=== PATIENT | male | born 1955 | race Caucasian/White ===

== ENCOUNTER 2019-12-23 13:44 | Emergency (ER) | payer OTHER, SELFPAY ==
--- NOTE | ~2019-12-23 | CT_ITS ---
EXAMINATION: CT abdomen pelvis w con DATE: 12/23/2019 15:09 INDICATION: Right flank pain. TECHNIQUE: Computed tomography (CT) of the abdomen and pelvis was performed with 100 mL Omnipaque 350 intravenous contrast. Automated exposure control and iterative reconstruction technique were employe d. The dose-length product was 1147.25 mGy-cm. COMPARISON: None. FINDINGS: The visualized portions of the lung bases demonstrate mild atelectasis. No pleural effusion . The heart size is normal. No pericardial effusion. There is a 2.4 cm cyst in the liver. The gallbla dder, spleen, pancreas, and adrenal glands are normal. There is cortical thinning of the kidneys. The re is a 2 mm stone in right kidney. There is a 4 mm stone in left kidney. There is a right inguinal h ernia containing fat. There are no dilated loops of bowel. The appendix is normal. There are no patho logically enlarged lymph nodes. There is no free intraperitoneal fluid. There is a plug from left ing uinal hernia repair. There is mild thoracolumbar spondylosis. IMPRESSION: 1. Right inguinal hernia containing fat. 2. Small bilateral nonobstructing kidney stones. Reviewed, dictated and finalized at location A.
[2019-12-23 13:49] VITALS: BP 177/95; PULSE 81; RESP 18; TEMP 36.7; O2SAT 98
--- NOTE | 2019-12-23 14:04 | ED.BACK ---
HPI - Back Pain/Injury General Chief Complaint: Back Pain/Injury Stated Complaint: Back Pain Time Seen by Provider: 12/23/19 13:57 Source: patient Mode of arrival: ambulatory Limitations: no limitations History of Present Illness HPI Narrative: Patient is a 64-year-old male with a history of cervical disc disease status post cervical fusion, who is presenting with right flank pain. Patient reports right flank pain awakened him from sleep overnight, is sharp and stabbing in nature. No abdominal pain no chest pain or shortness of breath. No cough or fever. No suprapubic pain or testicular pain. No penile pain, dysuria or hematuria, hesitancy or frequency. No history of nephrolithiasis. Patient states he called his primary care provider they are unable to see him, thus he was referred to this emergency department. No abdominal distention. No ripping or tearing sensation to the pain. No pain with palpation. There is some worsening of the pain when laying flat. No recent heavy lifting or injury. No recent falls. No saddle anesthesia or numbness. No difficulty with ambulation. Related Data Allergies Allergy/AdvReac Type Severity Reaction Status Date / Time No Known Allergies Allergy Mild Verified 12/23/19 14:02 Review of Systems Review of Systems: Narrative: CONSTITUTIONAL: Denies fever, chills, or sweats. EYES: Denies visual changes, redness, or discharge. ENT: Denies rhinorrhea, congestion, sore throat, or otalgia. CARDIOVASCULAR: Denies chest pain, palpitations, or edema. RESPIRATORY: Denies cough or dyspnea. GASTROINTESTINAL: Denies abdominal pain, nausea, vomiting, or diarrhea. Reports right flank pain. GENITOURINARY: Denies dysuria or hematuria. SKIN: Denies rash or itching. MUSCULOSKELETAL: Denies back pain, joint pain, or myalgia. NEUROLOGIC: Denies headache, numbness, or weakness. [facility] Past Medical History Medical History (Updated 12/23/19 @ 15:40 by Sydnee Houser MD) Cervical strain Surgical History Surgical History (Updated 12/23/19 @ 14:16 by Sydnee Houser MD) Status post cervical spinal fusion Family History Family History Mother Family history of multiple sclerosis Father Family history of heart disease in male family member before age 55 Other No family history of cardiovascular disease No family history of diabetes mellitus No family history of hypertension No family history of malignant neoplasm Social History Social History Smoking status: Never smoker Alcohol intake: current Exam Narrative: Exam Narrative: GENERAL: Awake, alert, conversant HEAD: Normocephalic, atraumatic. EYES: PERRLA and EOMI. ENT: Nares clear, no rhinorrhea or epistaxis. Mucous membranes moist. NECK: Supple. CHEST: No respiratory distress, breathing even and non labored HEART: Regular rate, sinus rhythm ABDOMEN:Non distended, non tender Thorax: No cervical midline, no thoracic midline, no lumbar midline pain. No reproducible flank tenderness or CVA tenderness. No paraspinal tenderness on exam. No increased pain with flexion or extension. EXTREMITIES: Normal range of motion. No edema. SKIN: Warm, dry, no rash. NEURO:No focal deficits. Alert and oriented x3. Intact FHL/EHL. Ambulatory with a narrow base, steady gait. Course Vital Signs Vital signs: Vital Signs Temperature 36.7 C 12/23/19 13:49 Pulse Rate 81 12/23/19 13:49 Respiratory Rate 18 12/23/19 13:49 Blood Pressure 177/95 H 12/23/19 13:49 Pulse Oximetry 98 12/23/19 13:49 Temperature 36.7 C 12/23/19 13:49 Pulse Rate 81 12/23/19 13:49 Respiratory Rate 18 12/23/19 13:49 Blood Pressure 177/95 H 12/23/19 13:49 Pulse Oximetry 98 12/23/19 13:49 MDM - Back Pain/Injury MDM Narrative Medical decision making narrative: Patient presenting for evaluation of right flank pain without history of t
[2019-12-23] MEDS: KETOROLAC (*BKC) 60 MG/2 ML VIAL 30 MG IM (14:30)
[2019-12-23 14:42] LABS: Basophils Percent Auto 0.7 % (0.2-1.2); Eosinophils Absolute Auto 0.2 K/mm3 (0-0.3); Eosinophils Percent Auto 4.6 % (0-4.4); Immature Granulocyte Absolute 0.01 K/mm3 (0.00-0.031); Immature Granulocyte Percent A 0.2 % (0-0.5); Lymphocytes Absolute Auto 1.37 K/mm3 (0.9-3.2); Lymphocytes Percent Auto 31.8 % (18.3-44.2); Mean Corpuscular HGB Conc 35.6 g/dl (32-36); Mean Corpuscular Hemoglobin 32.9 pg (26-34); Mean Corpuscular Volume 92.4 fl (80-100); Mean Platelet Volume 9.9 fl (7.4-10.4); Monocytes Absolute Auto 0.4 K/mm3 (0.1-0.6); Monocytes Percent Auto 10.2 % (2.6-8.5); Neutrophils Absolute Auto 2.3 K/mm3 (1.3-6.7); Neutrophils Percent Auto 52.5 % (45.5-73.1); Platelet Count Result 183 k/mm3 (150-375); Red Blood Count 4.87 M/mm3 (4.6-6.20); Red Cell Distribution Width 12.3 % (11.5-14.5); White Blood Count 4.3 K/mm3 (4.5-10.0)
[2019-12-23 14:46] LABS: Add Urine Microscopic? YES; Appearance Urine Clear (Clear); Bilirubin Urine Negative (Negative); Blood Urine Negative (Negative); Color Urine Straw (Yellow); Glucose Urine UA Negative (Negative); Ketones Urine Negative (Negative); Leukocyte Esterase Ur Negative LEU/UL (Negative); Mucus Urine Rare /lpf; Nitrate Urine Negative (Negative); Protein Urine Negative (Negative); RBC Urine 0-2 /hpf (0-2); Specific Grav Ur 1.009 (1.001-1.035); Urobilinogen Urine Negative mg/dL (<2.0)
[2019-12-23 15:03] LABS: Estimated CRCL calculation 87 ml/min; Estimated Glomerular Filt Rate > 60
[2019-12-23 15:23] LABS: Blood Urea Nitrogen 16 mg/dL (9-20); Calcium 9.4 mg/dL (8.4-10.2); Carbon Dioxide 29 mmol/L (22-30); Chloride 104 mmol/L (98-107); Estimated CRCL calculation 96 ml/min; Estimated Glomerular Filt Rate > 60; Glucose 100 mg/dL (75-110); Potassium 4.3 mmol/L (3.4-5.0); Sodium 138 mmol/L (137-145)
== END 2019-12-23 15:50 | disposition home or self-care (01) ==
PROVIDERS: Emergency Provider Emergency Medicine; PCP Family Medicine
DX: S29.012A Strain of muscle and tendon of back wall of thorax, initial encounter (principal); N20.0 Calculus of kidney; Z98.1 Arthrodesis status; K40.90 Unilateral inguinal hernia, without obstruction or gangrene, not specified as recurrent; X58.XXXA Exposure to other specified factors, initial encounter
CPT/HCPCS: 36415; 74177; 80048; 81001; 85025; 96372; 99284; J1885; Q9967

== ENCOUNTER 2020-06-03 10:26 | Outpatient (NON) | payer OTHER, SELFPAY ==
[2020-06-04 21:17] LABS: SARS-CoV-2 RNA PCR Positive
== END 2020-06-03 10:27 ==
LOC: ANHCOVIDDT 10:27
PROVIDERS: PCP Family Medicine; Visit Provider Physician Assistant
DX: J02.9 Acute pharyngitis, unspecified (principal); U07.1 COVID-19
CPT/HCPCS: 87635; C9803; U0003

== ENCOUNTER 2022-08-23 00:07 | Day surgery (SDC) | payer OTHER, SELFPAY ==
[2022-08-12 11:56] VITALS: BMI 29.5
[2022-08-22 11:56] VITALS: BP 140/92; PULSE 65; RESP 18; TEMP 36.2; O2SAT 100; BMI 28.6
--- NOTE | 2022-08-23 10:15 | WPDANESEPPF ---
Anes - Initial Pre Proc Eval Procedure: Operation Date: 08/23/22 12:30 Proposed Procedures p Screening Colonoscopy - Chad Boogie MD Date/Time: 08/23/22 10:15 Surgeon: Chad Boogie MD Pre Op Diagnosis: neoplasm screening Patient Data Age: 67 Gender: M Height: 1.96 m Weight: 113 kg Allergies Allergy/AdvReac Type Severity Reaction Status Date / Time No Known Allergies Allergy Mild Verified 08/23/22 10:39 Home Medications Medication Instructions Recorded Confirmed Type aspirin 325 mg tablet 325 mg PO DAILY 08/08/22 08/23/22 History Patient hx anesthesia problems: none Family hx anesthesia problems: none Results Review: All pre-operative results and documents have been reviewed as part of the pre-operative evaluation. [facility] Past Medical History Medical History (Updated 08/23/22 @ 10:15 by Ed Venegas MD) Cervical strain DVT (deep venous thrombosis) Overweight (BMI 25.0-29.9) Surgical History Surgical History Status post cervical spinal fusion Family History Family History Mother Family history of multiple sclerosis Father Family history of heart disease in male family member before age 55 Other No family history of cardiovascular disease No family history of diabetes mellitus No family history of hypertension No family history of malignant neoplasm Social History Social History Smoking status: Never smoker Alcohol intake: current Drinks per week: 6 Substance use: never Substance use type: does not use Lack of Transportation: No Lack of Food: Never True Current Housing: I Have Housing Concerned About Future Housing: No Difficulty Paying Gas/Electric Bills: No Difficulty Paying for Meds: No Currently Unemployed: No Education: High School Diploma/GED Difficulty w/ Childcare or Family Care: No Living arrangements: with family Spiritual care concerns: No Anes - Eval Final PreProcedure Day of Procedure 08/23/22 10:15 Patient weight: overweight Heart: regular rate and rhythm Lungs: clear to auscultation and normal air movement Airway: Mallampati scale class II Neurological: alert and oriented Last oral intake: >/= 8 hours ASA classification: II Emergent: no Anesthetic plan: proceed Anesthesia type and monitoring: general GIVS Results Review: All pre-operative results and documents have been reviewed as part of the pre-operative evaluation. Informed Consent: The patient's anesthetic plan and its attendant risks and benefits were discussed with the patient/family/POA. Questions were solicited and answers provided to the satisfaction of the patient/family/POA.
[2022-08-23] MEDS: LACTATED RINGERS 1,000 ML 150 ML IV CONT (10:46)
--- NOTE | 2022-08-23 11:14 | PM.HPGS ---
History of Present Illness History of Present Illness Consent: Risks, benefits, and alternatives have been discussed and questions answered. Patient agrees to proceed with procedure. Chief complaint: neoplasm screening Narrative: Demetris Rivera II is a 67 year old male Presents for screening colonoscopy. Patient's current weight appetite bowel movements are normal. Patient denies abdominal pain. He has had no bleeding. Previous colonoscopy 2016 revealed a tubular adenomatous colon polyp. Patient presents today for screening colonoscopy Review of Systems Review of Systems: review of systems noncontributory. [facility] Past Medical History Medical History (Updated 08/23/22 @ 11:15 by Chad Boogie MD) Cervical strain DVT (deep venous thrombosis) Overweight (BMI 25.0-29.9) Surgical History Surgical History Status post cervical spinal fusion Family History Family History Mother Family history of multiple sclerosis Father Family history of heart disease in male family member before age 55 Other No family history of cardiovascular disease No family history of diabetes mellitus No family history of hypertension No family history of malignant neoplasm Social History Social History Smoking status: Never smoker Alcohol intake: current Drinks per week: 6 Substance use: never Substance use type: does not use Lack of Transportation: No Lack of Food: Never True Current Housing: I Have Housing Concerned About Future Housing: No Difficulty Paying Gas/Electric Bills: No Difficulty Paying for Meds: No Currently Unemployed: No Education: High School Diploma/GED Difficulty w/ Childcare or Family Care: No Living arrangements: with family Spiritual care concerns: No Meds Home Medications and Allergies Home Medications Medication Instructions Recorded Confirmed Type aspirin 325 mg tablet 325 mg PO DAILY 08/08/22 08/23/22 History Allergies Allergy/AdvReac Type Severity Reaction Status Date / Time No Known Allergies Allergy Mild Verified 08/23/22 10:39 Vital Signs Vital Signs - 24 hr 08/22/22 11:56 Temperature 97.1 F L Pulse Rate 65 Respiratory Rate 18 Blood Pressure 140/92 H Pulse Oximetry 100 Oxygen Delivery Room Air Exam Narrative: Physical exam reveals patient to be alert. Vital signs stable. HEENT exam is unremarkable. Patient is anicteric. Lungs are clear to auscultation and percussion. Heart is without murmur or extra sounds. Abdomen bowel sounds present soft nontender with no organomegaly. Digital external rectal exam is normal. Assessment and Plan Assessment and plan (1) History of colon polyps: Code(s): Z86.010 - Personal history of colonic polyps Status: Acute Assessment and Plan: Patient has a history of tubular adenomatous colon polyp removed from the colon 2015. Plan for surveillance colonoscopy now . Consider this is at 5 year intervals.
[2022-08-23 11:18] VITALS: BP 127/77; PULSE 88; RESP 14; O2SAT 97
[2022-08-23 11:28] VITALS: BP 121/85; PULSE 72; RESP 25; O2SAT 97
[2022-08-23 11:38] VITALS: BP 134/90; PULSE 71; RESP 17; O2SAT 98
== END 2022-08-23 11:44 | disposition home or self-care (01) ==
PROVIDERS: PCP Family Medicine; Visit Provider Internal Medicine Gastroenterology
PROC: 0DJD8ZZ Inspection of Lower Intestinal Tract, Via Natural or Artificial Opening Endoscopic (ICD-10-PCS; CPT 45378; principal; 2022-08-23 12:30)
DX: Z12.11 Encounter for screening for malignant neoplasm of colon (principal); K64.8 Other hemorrhoids; Z86.010 Personal history of colon polyps; Z79.82 Long term (current) use of aspirin
CPT/HCPCS: G0105; J2704; J7120

== ENCOUNTER 2023-07-15 12:27 | Outpatient (CLI) | payer OTHER, MEDICARE, SELFPAY ==
--- NOTE | ~2023-07-15 | US_ITS ---
EXAMINATION: US venous doppler [facility] DATE: 07/15/2023 13:24 INDICATION: Bilateral lower limb swelling TECHNIQUE: Cr scale images without and with compression and Doppler images of the bilateral lower e xtremity veins were obtained. COMPARISON: 08/26/2013 FINDINGS: The right common femoral vein, profunda femoral vein, femoral vein, popliteal vein, peroneal trunk, a nd posterior tibial veins are patent. There is thrombosis of the right greater saphenous vein. The left common femoral vein, profunda femoral vein, femoral vein, popliteal vein, peroneal trunk, po sterior tibial veins, and greater saphenous vein are patent. IMPRESSION: 1. No evidence of deep venous thrombosis. Thrombosis of the right greater saphenous vein. Reviewed, dictated and finalized at location L. L RULE INSPECTOR IMPRESSION: 1. No evidence of deep venous thrombosis. Thrombosis of the right greater saphe nous vein.
== END 2023-07-15 12:28 | disposition home or self-care (01) ==
PROVIDERS: PCP Family Medicine; Visit Provider Family Medicine
DX: I82.811 Embolism and thrombosis of superficial veins of right lower extremity (principal); R60.0 Localized edema
CPT/HCPCS: 93970

== ENCOUNTER 2023-10-27 08:41 | Outpatient (CLI) | payer OTHER, SELFPAY ==
--- NOTE | ~2023-10-27 | US_ITS ---
EXAMINATION: US venous doppler [facility] DATE: 10/27/2023 15:29 INDICATION: Lower limb deep vein thrombosis. Secondary hypercoagulopathy. TECHNIQUE: Grayscale ultrasound images without and with compression and Doppler ultrasound images of the bilateral lower extremity veins were obtained. COMPARISON: Ultrasound 07/15/2023 FINDINGS: The visualized portions of right common femoral vein, profunda (deep) femoral vein, femoral vein, pop liteal vein, peroneal veins, posterior tibial veins, and greater saphenous vein outflow are patent. The visualized portions of left common femoral vein, profunda femoral vein, femoral vein, popliteal v ein, peroneal veins, posterior tibial veins, and greater saphenous vein outflow are patent. IMPRESSION: 1. No deep venous thrombosis. Reviewed, dictated and finalized at location A.
== END 2023-10-27 08:42 | disposition home or self-care (01) ==
PROVIDERS: PCP Family Medicine; Visit Provider Nurse Practitioner Family
DX: D68.69 Other thrombophilia (principal); I82.4Z1 Acute embolism and thrombosis of unspecified deep veins of right distal lower extremity
CPT/HCPCS: 93970

== ENCOUNTER 2023-11-18 09:14 | Outpatient (CLI) | payer OTHER, SELFPAY ==
[2023-11-24 11:39] LABS: Lupus dRVVT Screen 41 sec (< OR = 45); PTT-LA Screen 35 sec (< OR = 40)
[2023-11-24 13:24] LABS: Homocysteine 12.3 umol/L (<11.4)
[2023-11-26 04:43] LABS: Antithrombin III Activity 83 % normal (80-135)
== END 2023-11-18 09:15 | disposition home or self-care (01) ==
LOC: ANHLAB 09:21
PROVIDERS: Nurse Practitioner Family; PCP Family Medicine; Visit Provider Internal Medicine Hematology & Oncology
DX: D68.59 Other primary thrombophilia (principal)
CPT/HCPCS: 36415; 83090; 85300; 85303; 85306; 85613; 85730; 86146

== ENCOUNTER 2023-11-28 14:09 | Outpatient (CLI) | payer OTHER, SELFPAY ==
--- NOTE | ~2023-11-28 | XR_ITS ---
EXAMINATION: XR thoracic spine 3V DATE: 11/28/2023 14:45 INDICATION: Dorsalgia, unspecified. TECHNIQUE: 3 views of thoracic spine on 5 radiographs including standing views were obtained. COMPARISON: None. FINDINGS: Bone alignment is normal. Vertebral body heights are normal. Intervertebral disc heights ar e normal. There are endplate osteophytes at multiple levels. There are changes of anterior fusion pro cedure in cervical spine. IMPRESSION: 1. Mild thoracic spondylosis. Reviewed, dictated and finalized at location E.
== END 2023-11-28 14:10 ==
PROVIDERS: PCP Family Medicine; Visit Provider Family Medicine
DX: M47.894 Other spondylosis, thoracic region (principal)
CPT/HCPCS: 72072

== ENCOUNTER 2024-03-17 16:31 | Observation (INO) | payer OTHER, SELFPAY ==
--- NOTE | ~2024-03-17 | XR_ITS ---
EXAMINATION: XR fluoroscopy no charge DATE: 03/18/2024 15:00 CDT INDICATION: LEFT SIDE URETEROSCOPY, LASER, STONE EXTRACTION . TECHNIQUE: 4 fluoroscopic images of the left abdomen and pelvis were obtained during left ureteroscop y, laser, stone extraction, performed by Juancho Ortiz MD. I was not present during the procedur e. Fluoroscopy exposure time was 15.1 seconds. Air Kerma 8.55 mGy. DAP [id number] mGym2. COMPARISON: None FINDINGS/IMPRESSION: Fluoroscopic documentation of left ureteroscopy, laser, stone extraction. Please refer to the operati ve note for complete procedural details . Reviewed, dictated and finalized at location K.
--- NOTE | ~2024-03-17 | CT_ITS ---
EXAMINATION: CT abdomen pelvis wo con DATE: 03/17/2024 17:54 INDICATION: Left flank pain. TECHNIQUE: Computed tomography (CT) of the abdomen and pelvis was performed without intravenous contr ast. Automated exposure control and iterative reconstruction technique were employed. The dose-length product was 979.88 mGy-cm. COMPARISON: 12/23/2019 FINDINGS: Stable appearance of chronic atelectasis/scarring at the posterior right lower lobe. Heart size louis l. No pericardial or pleural effusion. 2.5 cm cyst in the left hepatic lobe. Gallbladder, spleen, claire creas and bilateral adrenal glands are normal. Bilateral nephrolithiasis with at least 6 stones measu ring up to 2 mm in the right kidney and 4 stones measuring up to 3 mm in the left kidney. There is mi ld left hydroureteronephrosis extending to a larger 5 mm obstructing stone at the left ureterovesicul ar junction. Decompressed bladder is unremarkable. Bowels including the appendix are normal. No free intraperitoneal gas or fluid. No pathologically enlarged abdominal or pelvic lymphadenopathy. Small f at-containing right inguinal hernia. Mild thoracic and lumbar spondylosis. IMPRESSION: 1. Bilateral nephrolithiasis with 5 mm obstructing stone at the left ureterovesicular junction mild l eft hydroureteronephrosis. 2. Small fat-containing right inguinal hernia. Reviewed, dictated and finalized at location A. IMPRESSION: 1. Bilateral nephrolithiasis with 5 mm obstructing stone at the left ureteroves icular junction mild left hydroureteronephrosis. 2. Small fat-containing right inguinal hernia.
[2024-03-17 16:49] VITALS: BP 183/90; PULSE 80; RESP 20; TEMP 36.4; O2SAT 99
--- NOTE | 2024-03-17 17:32 | ED.ABDPAIN ---
HPI - Abdominal Pain General Chief Complaint: Abdominal Pain <Jane Carlos APRN - Last Filed: 03/17/24 17:44> Stated Complaint: LLQ Pain <Jane Carlos APRN - Last Filed: 03/17/24 17:44> Time Seen by Provider: 03/17/24 17:34 <Jane Carlos APRN - Last Filed: 03/17/24 17:44> Focused HPI: Pt is a 68-year-old male who presents to the ER with L flank pain. He reports he's had kidney stones in the past but has never had to have intervention. Pt reports the pain started on Friday. It has been intermittent until 2:30pm today when it became constant. Pt has not noticed any visible blood in his urine. GENERAL: Well-appearing, well-nourished, and in no acute distress. HEAD: Normocephalic, atraumatic. CHEST: Clear to auscultation. ?No respiratory distress. HEART: Regular rate and rhythm.? NEURO: ?Alert and oriented x3. Patient screened in triage and initial orders placed.? ?Additional care and disposition to be based upon?diagnostic testing and treatment. <Jane Carlos APRN - Last Filed: 03/17/24 17:44> Source: patient and family <Jane Carlos APRN - Last Filed: 03/17/24 17:44> Mode of arrival: ambulatory <Jane Carlos APRN - Last Filed: 03/17/24 17:44> Limitations: no limitations <Jane Carlos APRN - Last Filed: 03/17/24 17:44> History of Present Illness HPI narrative: 68-year-old male with history of DVT on aspirin presents to the emergency department for left lower quadrant pain intermittently for 2 days. Patient states since 0230 this afternoon the pain is been more constant which prompted him to come to the ED. States it is currently 9/10 . The pain is in his left lower quadrant and radiates to his left flank. Denies dysuria hematuria, fever, urinary frequency urgency. He denies prior known history of kidney stones. <Jessica Grimes PA-C - Last Filed: 03/17/24 22:27> Related Data Home Medications: Home Medications Medication Instructions Recorded Confirmed aspirin 325 mg capsule 325 mg PO DAILY 11/28/23 02/17/24 <Jane Carlos APRN - Last Filed: 03/17/24 17:44> Allergies/Adverse Reactions: Allergies Allergy/AdvReac Type Severity Reaction Status Date / Time No Known Allergies Allergy Mild Verified 02/17/24 09:35 <Jane Carlos APRN - Last Filed: 03/17/24 17:44> Review of Systems Review of Systems: All systems reviewed & are unremarkable except as noted in HPI and below <Jessica Grimes PA-C - Last Filed: 03/17/24 22:27> [facility] Past Medical History Medical History: Medical History Cervical strain DVT (deep venous thrombosis) Overweight (BMI 25.0-29.9) <Jane Carlos APRN - Last Filed: 03/17/24 17:44> Surgical History Surgical History: Surgical History Status post cervical spinal fusion <Jane Carlos APRN - Last Filed: 03/17/24 17:44> Family History Family History: Family History Mother Family history of multiple sclerosis Father Family history of heart disease in male family member before age 55 Other No family history of cardiovascular disease No family history of diabetes mellitus No family history of hypertension No family history of malignant neoplasm <Jane Carlos APRN - Last Filed: 03/17/24 17:44> Social History Social History: Social History Smoking status: Never smoker Alcohol intake: current Drinks per week: 6 Substance use: never Substance use type: does not use Lack of Transportation: No Lack of Food: Never True Current Housing: I Have Housing Concerned About Future Housing: No Difficulty Paying Gas/Electric Bills: No Difficulty Paying for Meds: No Currently Unemployed:
[2024-03-17 19:42] VITALS: BP 159/98; PULSE 80; RESP 18; TEMP 36.2; O2SAT 97
[2024-03-17 19:59] LABS: Basophils Percent Auto 0.3 % (0.2-1.2); Eosinophils Percent Auto 0.2 % (0-4.4); Hematocrit 45.7 % (42.0-52.0); Hemoglobin 16.3 g/dL (14.0-18.0); Immature Granulocyte Absolute 0.04 K/mm3 (0.00-0.031); Immature Granulocyte Percent A 0.4 % (0-0.5); Lymphocytes Absolute Auto 0.72 K/mm3 (0.9-3.2); Mean Corpuscular HGB Conc 35.7 g/dl (32-36); Mean Corpuscular Hemoglobin 33.4 pg (26-34); Mean Corpuscular Volume 93.6 fl (80-100); Mean Platelet Volume 10.3 fl (7.4-10.4); Monocytes Absolute Auto 0.4 K/mm3 (0.1-0.6); Monocytes Percent Auto 4.2 % (2.6-8.5); Neutrophils Absolute Auto 9.1 K/mm3 (1.3-6.7); Neutrophils Percent Auto 87.9 % (45.5-73.1); Platelet Count Result 191 k/mm3 (150-375); Red Blood Count 4.88 M/mm3 (4.6-6.20); Red Cell Distribution Width 12.3 % (11.5-14.5); White Blood Count 10.3 K/mm3 (4.5-10.0)
[2024-03-17 20:07] LABS: Add Urine Microscopic? YES; Appearance Urine Clear (Clear); Bacteria Urine None Seen /hpf; Bilirubin Urine Negative (Negative); Blood Urine 3+ (Negative); Color Urine Yellow (Yellow); Glucose Urine UA Negative (Negative); Ketones Urine 1+ mg/dL (Negative); Leukocyte Esterase Ur Trace LEU/UL (Negative); Nitrate Urine Negative (Negative); Non Pathogenic Casts 0-2; Protein Urine Negative (Negative); RBC Urine 21-50 /hpf (0-2); Specific Grav Ur 1.014 (1.001-1.035); Squamous Epithelial Cell Urine None Seen /hpf (Few); Urobilinogen Urine 0.2 mg/dL (<2.0); WBC Urine 0-5 /hpf (0-3)
[2024-03-17] MEDS: SODIUM CHLORIDE 0.9% IV 1,000 ML 999 ML IV CONT (20:07)
[2024-03-17 20:08] VITALS: BP 172/89; PULSE 89; RESP 18; O2SAT 99
[2024-03-17 20:08] LABS: Alanine Aminotransferase 23 U/L (6-50); Albumin Level 4.6 g/dL (3.5-5.1); Alkaline Phosphatase 75 U/L (38-126); Anion Gap 13 mmol/L (4-12); Aspartate Amino Transferase 24 U/L (17-59); Bilirubin,Total 1.2 mg/dL (0.2-1.3); Blood Urea Nitrogen 16 mg/dL (9-20); Calcium 9.4 mg/dL (8.4-10.2); Carbon Dioxide 24 mmol/L (22-30); Chloride 101 mmol/L (98-107); Estimated CRCL calculation 68 ml/min; Estimated Glomerular Filt Rate > 60; Glucose 131 mg/dL (65-110); Lipase 58 U/L (23-300); Potassium 3.7 mmol/L (3.4-5.0); Sodium 138 mmol/L (137-145)
[2024-03-17] MEDS: MORPHINE SULFATE (*CRX) 4 MG/ML INJ IV PUSH (20:19)
[2024-03-17] MEDS: LACTATED RINGERS 1,000 ML 100 ML IV CONT (22:01)
[2024-03-17 22:04] VITALS: BP 158/82; PULSE 82; RESP 16; O2SAT 95
--- NOTE | 2024-03-17 22:47 | ADMGEN ---
This patient, Demetris Rivera II, was admitted to Medical Room 342-01. Patient/family oriented to hospital policies and general routines including ID bracelet, bed and alarms, visiting hours, pain management, procedures, bathroom and other care routines, personal items, smoking policy, room service/diet, and visiting hours. Information on how to activate the Rapid Response Team has been discussed. Patient/Family are encouraged to report perceived risks to care and to ask questions if they do not understand what they are told or what they should do.
[2024-03-17 23:07] VITALS: BMI 30.7
[2024-03-18] VITALS (9 sets, daily range): BP systolic 130–159; BP diastolic 62–95; PULSE 71–94; RESP 12–20; TEMP 35.7–36.7; O2SAT 95–100
[2024-03-18] MEDS: MORPHINE SULFATE (*CRX) 4 MG/ML INJ IV PUSH ×2 (06:06→09:49)
--- NOTE | 2024-03-18 06:41 | PM.IMHP ---
H&P: HPI History of Present Illness Date/Time: 03/18/24 06:41 Chief Complaint: left flank pain Narrative: pleasant 68-year-old without prior urological history right prior history of urolithiasis who presented the emergency department with a 3 day history of intermittent left flank pain. This was not associated with nausea vomiting fever chills or gross hematuria. Imaging demonstrates in obstructing 7-8 mm left distal ureteral calculus at the UPJ. Although patient was relatively pain-free after initial evaluation in the emergency department this stone appears large thought admission for pain management and definitive intervention was appropriate. He is on aspirin but that should not interfere with our ability to do ureteroscopy stone manipulation and extraction. He is aware the risk including, but not limited to, need for additional procedures, need to leave an indwelling stent and postoperative hematuria Review of Systems Review of Systems: All systems reviewed & are unremarkable except as noted in HPI and below PMFSH Past Medical History Medical History Cervical strain DVT (deep venous thrombosis) Overweight (BMI 25.0-29.9) Surgical History Surgical History Status post cervical spinal fusion Family History Family History Mother Family history of multiple sclerosis Father Family history of heart disease in male family member before age 55 Other No family history of cardiovascular disease No family history of diabetes mellitus No family history of hypertension No family history of malignant neoplasm Social History Social History Smoking status: Never smoker Second hand tobacco smoke exposure: No Alcohol intake: current Drinks per week: 6 Substance use: never Substance use type: does not use Do You Feel Safe in your Home?: Yes Lack of Transportation: No Lack of Food: Never True Current Housing: I Have Housing Concerned About Future Housing: No Difficulty Paying Gas/Electric Bills: No Difficulty Paying for Meds: No Currently Unemployed: No Education: Don't Know Difficulty w/ Childcare or Family Care: No Living arrangements: with family Spiritual care concerns: No Meds Home Medications and Allergies Home Medications Medication Instructions Recorded Confirmed Type aspirin 325 mg capsule 325 mg PO DAILY 05/03/24 08/21/24 History Allergies Allergy/AdvReac Type Severity Reaction Status Date / Time No Known Allergies Allergy Mild Verified 02/17/24 09:35 Vital Signs Vital Signs - 24 hr 03/17/24 16:49 03/17/24 19:42 03/17/24 20:08 Temperature 97.6 F 97.2 F L Pulse Rate 80 80 89 Respiratory Rate 20 18 18 Blood Pressure 183/90 H 159/98 H 172/89 H Pulse Oximetry 99 97 99 Oxygen Delivery 03/17/24 22:04 03/17/24 22:54 Temperature Pulse Rate 82 Respiratory Rate 16 Blood Pressure 158/82 H Pulse Oximetry 95 Oxygen Delivery Room Air Exam Const: General: no acute distress Resp: Effort & Inspection: normal respiratory effort GI: Inspection: non-distended GI Palp: No abdominal tenderness and No Guarding due to palpation present (GI) Auscultation: normal bowel sounds H&P: Results Labs Labs: Short CBC 03/17/24 Range/Units 17:35 WBC 10.3 H (4.5-10.0) K/mm3 Hgb 16.3 (14.0-18.0) g/dL Hct 45.7 (42.0-52.0) % Plt Count 191 (150-375) k/mm3 BMP 03/17/24 17:35 Sodium 138 Potassium 3.7 Chloride 101 Carbon Dioxide 24 BUN 16 Creatinine 1.20 Glucose 131 H Calcium 9.4 Liver Function 03/17/24 Range/Units 17:35 Total Bilirubin 1.2 (0.2-1.3) mg/dL AST 24 (17-59) U/L ALT 23 (6-50) U/L Alkaline Phosphatase 75 (38-126) U/L Albumin 4.6 (3.5-5.1)
--- NOTE | 2024-03-18 06:44 | WPDHPUPDATE1 ---
History and Physical Update Update Date/Time: 03/18/24 06:44 History and Physical has been reviewed, including an updated exam of the patient. There are NO changes in the patient's condition. Risks, benefits, and alternatives have been discussed and questions answered. Patient agrees to proceed with procedure.
[2024-03-18] MEDS: LACTATED RINGERS 1,000 ML 100 ML IV CONT (08:35)
--- NOTE | 2024-03-18 14:08 | WPDANESEPPF ---
Anes - Initial Pre Proc Eval Procedure: Operation Date: 03/18/24 14:30 Proposed Procedures p Cystoscopy,Left Retrograde Pyelogram,Left Ureteroscopy,Left Stone Extraction,Possible Laser,Possible Stent Placement - Juancho Ortiz MD Date/Time: 03/18/24 14:08 Surgeon: Juancho Ortiz MD Pre Op Diagnosis: Ureteral Sone Patient Data Age: 68 Gender: M Height: 1.96 m Weight: 117.3 kg Last Vital Signs Temp 96.3 F L 03/18/24 06:00 Pulse 76 03/18/24 06:00 Resp 20 03/18/24 06:00 BP 140/62 03/18/24 06:00 Pulse Ox 96 03/18/24 09:08 O2 Del Method Room Air 03/18/24 09:08 Allergies Allergy/AdvReac Type Severity Reaction Status Date / Time No Known Allergies Allergy Mild Verified 02/17/24 09:35 Home Medications Medication Instructions Recorded Confirmed Type aspirin 325 mg capsule 325 mg PO DAILY 11/28/23 03/17/24 History Laboratory Tests 03/17/24 17:35 WBC 10.3 H K/mm3 (4.5-10.0) RBC 4.88 M/mm3 (4.6-6.20) Hgb 16.3 g/dL (14.0-18.0) Hct 45.7 % (42.0-52.0) MCV 93.6 fl (80-100) MCH 33.4 pg (26-34) MCHC 35.7 g/dl (32-36) RDW 12.3 % (11.5-14.5) Plt Count 191 k/mm3 (150-375) MPV 10.3 fl (7.4-10.4) Immature Gran % (Auto) 0.4 % (0-0.5) Neut % (Auto) 87.9 H % (45.5-73.1) Lymph % (Auto) 7.0 L % (18.3-44.2) [place] % (Auto) 4.2 % (2.6-8.5) Eos % (Auto) 0.2 % (0-4.4) Baso % (Auto) 0.3 % (0.2-1.2) Lymph # (Auto) 0.72 L K/mm3 (0.9-3.2) Deuel # (Auto) 0.4 K/mm3 (0.1-0.6) Eos # (Auto) 0.0 K/mm3 (0-0.3) Baso # (Auto) 0.0 K/mm3 (0.0-0.1) Abs Immat Gran (auto) 0.04 H K/mm3 (0.00-0.031) Absolute Neuts (auto) 9.1 H K/mm3 (1.3-6.7) Absolute Nucleated RBC 0.000 K/mm3 (0.0-0.012) Nucleated RBC % 0.0 % (0.0-0.2) Sodium 138 mmol/L (137-145) Potassium 3.7 mmol/L (3.4-5.0) Chloride 101 mmol/L (98-107) Carbon Dioxide 24 mmol/L (22-30) Anion Gap 13 H mmol/L (4-12) BUN 16 mg/dL (9-20) Creatinine 1.20 mg/dL (0.7-1.3) Estim Creat Clear Calc 68 ml/min Estimated GFR > 60 (59 - ) Glucose 131 H mg/dL (65-110) Calcium 9.4 mg/dL (8.4-10.2) Total Bilirubin 1.2 mg/dL (0.2-1.3) AST 24 U/L (17-59) ALT 23 U/L (6-50) Alkaline Phosphatase 75 U/L (38-126) Total Protein 8.0 g/dL (6.3-8.2) Albumin 4.6 g/dL (3.5-5.1) Lipase 58 U/L (23-300) Urine Color Yellow (Yellow) Urine Appearance Clear (Clear) Urine pH 6.0 (5.0-9.0) Ur Specific [place] 1.014 (1.001-1.035) Urine Protein Negative mg/dL (Negative) Urine Glucose (UA) Negative mg/dL (Negative) Urine Ketones 1+ H mg/dL (Negative) Ur Blood (Man) 3+ H (Negative) Urine Nitrate Negative (Negative) Urine Bilirubin Negative (Negative) Urine Urobilinogen 0.2 mg/dL (<2.0) Leukocyte Esterase Rfl Trace H SARAY/UL (Negative) Urine RBC 21-50 H /hpf (0-2) Urine WBC 0-5 /hpf (0-3) Ur Squamous Epith Cells None seen /hpf (Few) Urine Bacteria None seen /hpf Urine Casts 0-2 Patient hx anesthesia problems: none Family hx anesthesia problems: none Results Review: All pre-operative results and documents have been reviewed as part of the pre-operative evaluation. [facility] Past Medical History Medical History Cervical strain DVT (deep venous thrombosis) Overweight (BMI 25.0-29.9) Surgical History Surgical History Status post cervical spinal fusion Family History Family History Mother Family history of multiple sclerosis Father Family history of heart disease in male family member before age 55 Other No family history of cardiovascular disease No fami
[2024-03-18] MEDS: ceFAZolin 2 GM/D5W 50 ML 2 GM/50 ML BAG IVPB (14:51)
[2024-03-18] MEDS: LIDOCAINE HCL 2% GEL UROJET 10 ML PKG MUCOUS MEM (15:11)
--- NOTE | 2024-03-18 15:17 | W.PM.PROC2 ---
Procedure Note - Detailed Date of Procedure 03/18/24 Pre-op Diagnosis Ureteral Sone Post-op Diagnosis Same Procedure Performed Cystoscopy, left ureteroscopy with laser lithotripsy, stone extraction Surgeon Juancho Ortiz MD Anesthesia General Description of Procedure patient brought to the operative suite was prepped draped in routine sterile fashion while in dorsal lithotomy position after the uneventful induction of a general LMA anesthetic. 2% xylocaine jelly was introduced intraurethrally. Cystoscopy was undertaken with a 19 F rigid cystoscope. 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 Bladder mucosa is normal. There was no intravesical foreign body or neoplasm. As a single orthotopic ureteral orifice bilaterally. A 0.035 in glidewire was advanced into his left renal pelvis and the distal ureter was dilated with an 8 F 10 F dilator. Ureteroscopy undertaken with a short tapered semi-rigid ureteral scope. Has a 6-7 mm left distal ureteral stone. I fractured it into small pieces using a 200 micron holmium laser fiber. All pieces removed with a 1.9 F disposable stone basket. Because of the ease of this manipulation and minimal ureteral edema I opted not to place ureteral stent. Scopes and wires removed. Patient tolerated the procedure well was taken recovery room in good condition.
[2024-03-18] MEDS: LACTATED RINGERS 1,000 ML 30 ML IV CONT (15:21)
--- NOTE | 2024-03-18 15:45 | SUR.PHASEI ---
Simple mask removed at [id number]
--- NOTE | 2024-03-18 16:22 | PC.NURSE ---
Patient returned from OR per bed.
--- NOTE | 2024-03-19 15:20 | PM.DS ---
DS: Admitting Diagnosis Discharge Date 03/18/24 Admitting Diagnosis Left ureteral stone DS: Discharge Diagnosis Discharge Diagnosis (1) Calculi, ureter: Code(s): N20.1 - Calculus of ureter Status: Acute DS: Summary Hospital Course Hospital Course: Patient without history of urolithiasis was admitted through the emergency department with a painful obstructing, rather large left distal ureteral calculus. He was admitted for hydration analgesics. The following day we undertaken uneventful endoscopic stone extraction without ureteral stent placement. Later that afternoon he was comfortable and tolerated a diet. He was discharged plans to follow-up in approximately 2 weeks Time Spent with Patient Time attestation: Total time spent providing and/or coordinating discharge services: DS: Data Data Completed and Pending Pending studies at discharge: Pending at discharge 03/18/24 15:05 Surgical [PTH] Routine Discharge Plan Discharge Attending physician on discharge: Juancho Ortiz Consulting providers: Alok Pearson; Wilman Moya; Jt Nelson; Jane Carlos Discharging Clinician: Juancho Ortiz Patient Disposition: Home, Self-Care Activity: other - see discharge instructions Diet: other - see discharge instructions Discharge Instructions: 1) Activity: no driving or important decisions x24 hours. 2) Diet: resume your normal, pre-admission diet. 3) Follow-up: 7-14 days for stent removal / call for appointment ([phone]). Patient Instructions: Antibiotic Form Stand Alone Forms: General Discharge Information Follow-up/Referrals: Juancho Ortiz MD [Physician] - Discharge Medications: New hydrocodone-acetaminophen 5-325 mg tablet 1 - 2 tablet PO Q6H PRN (Reason: pain) Qty: 20 0RF Continued aspirin 325 mg capsule 325 mg PO DAILY Date of admission: 03/17/24 21:46 Primary Care Provider: Benjamín Valenzuela Admitting Provider: Juancho Ortiz Attending physician on admission: Juancho Ortiz Condition: Stable
== END 2024-03-18 19:00 | disposition home or self-care (01) ==
LOC: ANHED 21:45 → ANH3MED 22:30
PROVIDERS: Registered Nurse; Admitting Provider Urology; Emergency Provider Physician Assistant; PCP Family Medicine; Visit Provider Urology
PROC: (CPT 52352; principal; 2024-03-18 14:30)
DX: N20.1 Calculus of ureter (principal); Z86.718 Personal history of other venous thrombosis and embolism; Z79.82 Long term (current) use of aspirin
CPT/HCPCS: 52353; 36415; 74176; 80053; 81001; 82365; 83690; 85025; 88300; 96361; 96374; 96376; 99199; 99285; C1769; G0378; J0690; J1100; J1885; J2270; J2405; J2704; J7030; J7120; Q9966

== ENCOUNTER 2024-09-27 11:47 | Outpatient (CLI) | payer OTHER, MEDICARE, SELFPAY | END 2024-09-27 11:48 | disposition home or self-care (01) | PROVIDERS: PCP Family Medicine; Visit Provider Urology | DX: Z87.442 Personal history of urinary calculi (principal) | CPT/HCPCS: 74018 ==

== ENCOUNTER 2025-06-16 13:36 | Outpatient (CLI) | payer OTHER, MEDICARE, SELFPAY ==
[2025-06-16 13:59] LABS: Hematocrit 45.1 % (42.0-52.0); Hemoglobin 15.9 g/dL (14.0-18.0); Immature Granulocyte Percent A 0.4 % (0-0.5); Lymphocytes Absolute Auto 1.56 K/mm3 (0.9-3.2); Mean Corpuscular HGB Conc 35.3 g/dl (32-36); Mean Corpuscular Hemoglobin 33.0 pg (26-34); Mean Corpuscular Volume 93.6 fl (80-100); Nucleated Red Blood Cells Absolute Auto 0.000 K/mm3 (0.0-0.012); Nucleated Red Blood Cells Perc 0.0 % (0.0-0.2); Platelet Count Result 211 k/mm3 (150-375); Red Blood Count 4.82 M/mm3 (4.6-6.20); White Blood Count 5.0 K/mm3 (4.5-10.0)
== END 2025-06-16 13:37 | disposition home or self-care (01) ==
LOC: ANHLAB 13:38
PROVIDERS: PCP Nurse Practitioner Family; Visit Provider Internal Medicine Hematology & Oncology
DX: D68.59 Other primary thrombophilia (principal)
CPT/HCPCS: 36415; 83090; 85025